=== PATIENT | female | born 1990 | race African-American/Black ===

== ENCOUNTER → 2020-06-24 | Emergency (ER) | payer SELFPAY ==
[~2020-06-24] VITALS: Ht 172.7 cm; Wt 59.0 kg
[~2020-06-24] MED LIST: CEPHALEXIN500 MG ORAL; Haloperidol Decanoate (Long Acting) 50mg Inj IM SCH; cefTRIAXone 1 GM in NS 55 ML IVPB ONE; metroNIDAZOLE 500mg tab ORAL ONE
--- NOTE | 2020-06-24 15:00 | NUR ---
ED Nurse Note: Patient picked up from street and brought in by RA 26 due to behavioral. Patient was walking naked and swinging a stick at people. Patient presented calm, AAo X0, vss AT THIS TIME.
--- NOTE | 2020-06-24 15:06 | NUR ---
ED Nurse Note: [employer] BY BED SIDE
--- NOTE | 2020-06-24 15:06 | Emergency Room Report ---
History of Present Illness General Chief Complaint: Behavioral Complaint Source: EMS, Law Enforcement (Stuart Dacosta MD) Present Illness HPI Disclaimer: Please note that this report is being documented using DRAGON technology. This can lead to erroneous entry secondary to incorrect interpretation by the dictating instrument. HPI: Approximately 30-year-old female with unknown medical history presents for evaluation of altered mental status and bizarre behavior. Per EMS, the patient was found walking naked on the street swinging a stick at people. Unable to obtain any information from patient. She is refusing to answer questions, refusing to provide her name, she is moving all extremities but otherwise not engaging with EMS or ER staff. She is being placed on a 5150 hold by [employer]. Unable to obtain review of systems or any complaints from the patient at this time. PMH: Unable to obtain PSH: Unable to obtain Allergies: Unable to obtain Social Hx: Unable to obtain (Stuart Dacosta MD) Allergies: Coded Allergies: No Known Allergies (Unverified , 06/24/20) COVID-19 Screening Contact w/high risk pt: No Experienced COVID-19 symptoms?: No COVID-19 Testing performed TRACK RIDER: No (Stuart Dacosta MD) Review of Systems All Other Systems: limited - Patient not cooperative (Stuart Dacosta MD) Physical Exam Vital Signs Date Time Temp Pulse Resp B/P (MAP) Pulse Ox O2 Delivery O2 Flow Rate FiO2 06/24/20 14:44 98.6 80 18 120/70 (87) 98 Room Air General: Awake, moving all extremities, no apparent distress, disheveled, unkempt, handcuffed to gurney HEENT: NC/AT. EOMI. Cardiovascular: RRR. S1 and S2 normal. No murmur appreciated Resp: Normal work of breathing. No cough, wheezing or crackles appreciated Abdomen: Abdomen is soft, nondistended. Nontender Skin: Intact. No abrasions, laceration or rash over the exposed skin MSK: Normal tone and bulk. Moving all extremities. No obvious deformity. Neuro: Awake and alert. Refusing to provide information or answer questions. Cannot assess orientation as she is uncooperative. (Stuart Dacosta MD) Medical Decision Making Diagnostic Impression: Primary Impression: UTI (urinary tract infection) Additional Impressions: Trichomoniasis Methamphetamine abuse ER Course This is a Trish Richard presenting for evaluation of bizarre behavior found walking naked and swinging a stick at people on the street. She is being placed on 5150 hold by [employer]. Will obtain broad labs to evaluate for infectious, metabolic and toxicologic abnormalities in anticipation of psychiatric evaluation. Arrives with stable vital signs and no acute distress. Will attempt to obtain further information. Labs show evidence of acute urinary tract infection patient was treated with ceftriaxone. Will require further antibiotics. Also evidence of trichomonas. Treated with Flagyl. Renal function and other labs within normal limits aside from talk screen which is positive for amphetamines. Patient remains on 5150 hold. Will be transferred to psychiatric facility. She is medically cleared for transfer. Laboratory Tests Test 06/24/20 15:52 06/24/20 19:57 White Blood Count 6.5 K/UL (4.8-10.8) Red Blood Count 4.37 M/UL (4.20-5.40) Hemoglobin 12.1 G/DL (12.0-16.0) Hematocrit 36.9 % (37.0-47.0) L Mean Corpuscular Volume 85 FL (80-99) Mean Corpuscular Hemoglobin 27.7 PG (27.0-31.0) Mean Corpuscular Hemoglobin Concent 32.7 G/DL (32.0-36.0) Red Cell Distribution Width 14.5 % (11.6-14.8) Platelet Count 316 K/UL (150-450) Mean Platelet Volume 5.5 FL (6.5-10.1) L Neutrophils (%) (Auto) 39.7 % (45.0-75.0) L Lymphocytes (%) (Auto) 48.8 % (20.0-45.0) H Monocytes (%) (Auto) 9.9 % (1.0-10.0) Eosinophils (%) (Auto) 1.0 % (0.0-3.0) Basophils (%) (Auto) 0.7 % (0.0-2.0) Sodium Level 142 MMOL/L (136-145) Potassium Level 3.4 MMOL/L (3.5-5.1) L Chloride Level 108 MMOL/L (98-107) H Carbon Dioxide Level 28 MMOL/L (21-32) Anion Gap 6 mmol/L (5-15) Blood Urea Nitrogen 7 mg/dL (7-18) Creatinine 0.9 MG/DL (0.55-1.30) Estimated Glomerular Filtration Rate > 60 mL/min (>60) Glucose Level 85 MG/DL (74-106) Calcium Level 8.9 MG/DL (8.5-10.1) Total Bilirubin 0.5 MG/DL (0.2-1.0) Aspartate Amino Transferase (AST) 35 U/L (15-37) Alanine Aminotransferase (ALT) 41 U/L (12-78) Alkaline Phosphatase 92 U/L (46-116) Total Protein 7.5 G/DL (6.4-8.2) Albumin 3.4 G/DL (3.4-5.0) Globulin 4.1 g/dL Albumin/Globulin Ratio 0.8 (1.0-2.7) L Salicylates Level 0.3 ug/mL (2.8-20) L Acetaminophen Level < 2 MCG/ML (10-30) L Serum Alcohol 26 mg/dL Urine Color Yellow Urine Appearance Slightly cloudy Urine pH 5 (4.5-8.0) Urine Specific [place] 1.030 (1.005-1.035) Urine Protein 2+ (NEGATIVE) H Urine Glucose (UA) Negative (NEGATIVE) Urine Ketones 1+ (NEGATIVE) H Urine Blood 1+ (NEGATIVE) H Urine Nitrite Negative (NEGATIVE) Urine Bilirubin Negative (NEGATIVE) Urine Urobilinogen 1 MG/DL (0.0-1.0) H Urine Leukocyte Esterase 3+ (NEGATIVE) H Urine RBC 5-10 /HPF (0 - 2) H Urine WBC Tntc /HPF (0 - 2) H Urine Squamous Epithelial Cells Many /LPF (NONE/OCC) H Urine Bacteria Many /HPF (NONE) H Urine Trichomonas Moderate /HPF (NONE) H Urine HCG, Qualitative Negative (NEGATIVE) Urine Opiates Screen Negative (NEGATIVE) Urine Barbiturates Screen Negative (NEGATIVE) Phencyclidine (PCP) Screen Negative (NEGATIVE) Urine Amphetamines Screen Positive (NEGATIVE) H Urine Benzodiazepines Screen Negative (NEGATIVE) Urine Cocaine Screen Negative (NEGATIVE) Urine Marijuana (THC) Screen Negative (NEGATIVE) (Stuart Dacosta MD) ER Course Patient signed out to me pending psychiatric evaluation. On my exam of the patient she was calm. She denied any suicidal homicidal ideation to me. Was given food, clothing. She was seen by psychiatry, Dr. Alfonso who lifted the hold on the patient. Patient will be discharged to self-care. Given Haldol long-acting prior to discharge. Counseled on her illicit drug use. (Prasad Cordoba M.D.) Last Vital Signs Date Time Temp Pulse Resp B/P (MAP) Pulse Ox O2 Delivery O2 Flow Rate FiO2 06/24/20 14:44 98.6 80 18 120/70 (87) 98 Room Air (Stuart Dacosta MD) Disposition: HOME, SELF-CARE Condition: Stable Scripts Cephalexin* (KEFLEX*) 500 Mg Capsule 500 MG ORAL EVERY 8 HOURS, #21 CAP Prov: Prasad Cordoba M.D. 06/25/20 Stuart Dacosta MD Jun 24, 2020 15:06 Prasad Cordoba M.D. Jun 25, 2020 14:46
--- NOTE | 2020-06-24 15:07 | NUR ---
ED Nurse Note: Patient was placed on 5150 by officer Jona garduno # [id number]
[2020-06-24 15:30] VITALS: BP 120/70
--- NOTE | 2020-06-24 15:55 | NUR ---
ED Nurse Note: IV line was established on right AC 20ga, blood sent to lab
[2020-06-24 16:12] LABS: BASOPHILS % (AUTO) 0.7 % (0.0-2.0); HEMATOCRIT 36.9 % (37.0-47.0); HEMOGLOBIN 12.1 G/DL (12.0-16.0); LYMPHOCYTES % (AUTO) 48.8 % (20.0-45.0); MEAN CORPUSCULAR VOLUME 85 FL (80-99); MONOCYTES % (AUTO) 9.9 % (1.0-10.0); NEUTROPHILS % (AUTO) 39.7 % (45.0-75.0); PLATELET COUNT 316 K/UL (150-450); RED BLOOD COUNT 4.37 M/UL (4.20-5.40); RED CELL DISTRIBUTION WIDTH 14.5 % (11.6-14.8); WHITE BLOOD COUNT 6.5 K/UL (4.8-10.8)
[2020-06-24 16:19] LABS: ANION GAP 6 mmol/L (5-15); BLOOD UREA NITROGEN 7 mg/dL (7-18); CALCIUM 8.9 MG/DL (8.5-10.1); CARBON DIOXIDE 28 MMOL/L (21-32); CHLORIDE 108 MMOL/L (98-107); CREATININE 0.9 MG/DL (0.55-1.30); POTASSIUM 3.4 MMOL/L (3.5-5.1); SODIUM 142 MMOL/L (136-145)
[2020-06-24 16:23] LABS: ALANINE AMINOTRANSFERASE 41 U/L (12-78); ALBUMIN 3.4 G/DL (3.4-5.0); ALBUMIN/GLOBULIN RATIO 0.8 (1.0-2.7); ALKALINE PHOSPHATASE 92 U/L (46-116); ASPARTATE AMINO TRANSFERASE 35 U/L (15-37); BILIRUBIN,TOTAL 0.5 MG/DL (0.2-1.0)
--- NOTE | 2020-06-24 16:35 | NUR ---
ED Nurse Note: Patient continuing to refuse straight cath for urine collection, UMER aware.
[2020-06-24 17:35] VITALS: BP 124/72
--- NOTE | 2020-06-24 18:55 | NUR ---
ED Nurse Note: Patient given apple juice and soda to encourge providing urine sample. Patient states she can't go right now, but will be able to soon.
--- NOTE | 2020-06-24 19:06 | NUR ---
HAND-OFF: Report given to Yahir ALMONTE.
[2020-06-24 19:07] VITALS: BP 129/68
--- NOTE | 2020-06-24 19:07 | NUR ---
ED Nurse Note: Pt awake, alert but still not providing any personal information. Breathing even and unlabored. Safety and comfort provided. Sitter at bedside.
--- NOTE | 2020-06-24 19:57 | NUR ---
ED Nurse Note: Urine specimen collected and sent to lab.
[2020-06-24 20:08] LABS: APPEARANCE,URINE SLIGHTLY CLOUDY; BILIRUBIN, URINE NEGATIVE (NEGATIVE); GLUCOSE, URINE (UA) NEGATIVE (NEGATIVE); KETONES,URINE 1+ (NEGATIVE); LEUKOCYTE ESTERASE ,URINE 3+ (NEGATIVE); NITRITE,URINE NEGATIVE (NEGATIVE); PH,URINE 5 (4.5-8.0); PROTEIN,URINE 2+ (NEGATIVE); UROBILINOGEN,URINE 1 MG/DL (0.0-1.0)
[2020-06-24 20:15] LABS: COLOR,URINE YELLOW
[2020-06-24 21:00] VITALS: BP 120/69
--- NOTE | 2020-06-24 22:30 | NUR ---
ED Nurse Note: Pt seen quietly in bed. Breathing even and unlabored. Safety and comfort provided. Will cont to monitor.
[2020-06-24 23:00] VITALS: BP 122/71
--- NOTE | 2020-06-24 23:00 | NUR ---
HAND-OFF: Report given to SUZY Chanel.
--- NOTE | 2020-06-24 23:30 | NUR ---
ED Nurse Note: received patient from kevin lee. patient sleeping in bed with no acute distress. Respirations even and unlabored. vitals stable to baseline. will continue to monitor.
--- NOTE | 2020-06-25 00:33 | NUR ---
ED Nurse Note: Patient remains asleep. all safety measures met.
--- NOTE | 2020-06-25 01:45 | NUR ---
ED Nurse Note: provided patient with warm blankets. arousable to light stimuli. pt unable to identify self. presents in no acute distress. will continue to monitor.
[2020-06-25 02:43] VITALS: BP 119/71
--- NOTE | 2020-06-25 02:43 | NUR ---
ED Nurse Note: Repositioned for comfort. patient remains asleep. Vitals remain stable to baseline.
--- NOTE | 2020-06-25 03:11 | NUR ---
ED Nurse Note: Patient sleeping comfortably in bed able to reposition self.
--- NOTE | 2020-06-25 04:44 | NUR ---
ED Nurse Note: Patient resting in bed comfortably. will continue to monitor.
[2020-06-25 05:27] VITALS: BP 122/68
--- NOTE | 2020-06-25 05:27 | NUR ---
ED Nurse Note: Patient sleeping in bed with no acute distress. Vitals stable to baseline. respirations even and unlabored.
--- NOTE | 2020-06-25 07:27 | NUR ---
ED Nurse Note: received pt on bed, asleep, NAD noted. will continue to monitor.
[2020-06-25 07:28] VITALS: BP 124/70
--- NOTE | 2020-06-25 08:26 | NUR ---
ED Nurse Note: pt awake, unable to provide her personal information; no acute distress noted.
[2020-06-25 09:23] VITALS: BP 126/74
--- NOTE | 2020-06-25 10:00 | NUR ---
ED Nurse Note: Pt awake, VSS, no acute distress noted, breakfast tray provided
--- NOTE | 2020-06-25 10:30 | NUR ---
ED Nurse Note: Per pt, her name is "Ora"; asked for her last name but pt denied that she has one, pt denied providing any other information at this time. VSS, no acute distress noted.
[2020-06-25 12:14] VITALS: BP 122/72
--- NOTE | 2020-06-25 13:30 | NUR ---
ED Nurse Note: Dr. Alfonso at bedside
--- NOTE | 2020-06-25 14:00 | NUR ---
[address] BLOOD
--- NOTE | 2020-06-25 15:49 | NUR ---
ED Nurse Note: charge nurse at bedside.
[2020-06-25 16:14] VITALS: BP 121/70
--- NOTE | 2020-06-25 16:14 | NUR ---
ER DISCHARGE NOTE: Patient is cleared to be discharged per ERMD, pt is aox4, on room air, with stable vital signs. pt was given dc and prescription instructions, pt was able to verbalize understanding, pt id band and iv site removed without complications. pt is able to ambulate with steady gait. pt took all belongings.
--- NOTE | 2020-06-25 18:00 | Consultation ---
DATE OF CONSULTATION: 06/25/2020 CONSULTING PHYSICIAN: Fernanda Alfonso MD. HISTORY OF PRESENT ILLNESS: Patient is a 30-year-old female with a history of substance abuse disorder who has been admitted to the hospital on a 5150. Patient has been calm, eating adequately, uncooperative, covering her head with a blanket. She has been naked in the street. She was speaking nonsensical. Her urine toxicology positive for drugs. Patient is psychotic. PAST PSYCHIATRIC HISTORY: She is unable to cooperate and really uncooperative. PAST MEDICAL HISTORY: None known. ALLERGIES: None known. SUBSTANCE USE HISTORY: She is uncooperative with examination. MENTAL STATUS EXAMINATION: Patient is alert, oriented times self, place. She is uncooperative with mini-mental status. Mood is calm. Affect is constricted, congruent with mood. Thought process is concrete. Thought content, there is no suicidal or homicidal ideation. Cognition is unable to assess. Insight and judgment limited. ASSESSMENT: [place] I Substance use disorder. 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 [place] II Deferred. [place] III None. [place] IV Homelessness. [place] V 50. PLAN: 1. We will discontinue the 5150. 2. Patient can be discharged with a followup plan with a psychiatrist and substance use disorder. 3. Start patient on Haldol Decanoate. Fernanda Alfonso M.D. DR: JG JOB#: [id number] CC:
== END | disposition home or self-care (01) ==
LOC: EDBD 14:48 → EMR 16:37
DX: N39.0 Urinary tract infection, site not specified (principal); F15.10 Other stimulant abuse, uncomplicated; A59.9 Trichomoniasis, unspecified; Z59.0 Homelessness
CPT/HCPCS: 36415; 80053; 80307; 81003; 81025; 85025; 87086; 96365; 99285; G0480; J0696; U0002